=== PATIENT | female | born 1980 | race Caucasian/White ===

== ENCOUNTER 2016-08-09 21:38 | Emergency (ER) | payer OTHER | END 2016-08-10 00:20 | disposition home or self-care (01) | DX: R07.89 Other chest pain (principal); Z87.11 Personal history of peptic ulcer disease; F32.9 Major depressive disorder, single episode, unspecified ==

== ENCOUNTER 2017-02-25 19:16 | Emergency (ER) | payer OTHER ==
[2017-02-25 19:48] LABS: BILIRUBIN,URINE NEGATIVE (NEGATIVE); PH,URINE 6.5 PH (5.0-7.5)
[2017-02-25 19:51] LABS: HCG UR QUAL NEGATIVE; UA CHARGE (STRIP ONLY) YES; UR CULTURE IF IND NOT INDICATED
[2017-02-25 20:58] LABS: BASOPHILS # (AUTO) 0.1 10^3/uL (0.0-0.1); BASOPHILS % (AUTO) 0.5 %; EOSINOPHILS # (AUTO) 0.1 10^3/uL (0.0-0.7); EOSINOPHILS % (AUTO) 1.4 %; HCT - HEMATOCRIT 37.9 % (37.0-47.0); HGB - HEMOGLOBIN 12.8 g/dL (12.0-16.0); LYMPHOCYTES # (AUTO) 2.4 10^3/uL (1.5-3.5); LYMPHOCYTES % (AUTO) 23.2 %; MEAN CORPUSCULAR HEMOGLOBIN 29.5 pg (27.0-31.0); MEAN CORPUSCULAR HGB CONC 33.7 g/dL (32.0-36.0); MEAN CORPUSCULAR VOLUME 87.7 fL (81.0-99.0); MEAN PLATELET VOLUME 8.6 fL (7.9-10.8); MONOCYTES # (AUTO) 0.7 10^3/uL (0.0-1.0); NEUTROPHILS % (AUTO) 67.9 %; RED BLOOD COUNT 4.32 10^6/uL (4.20-5.40); RED CELL DISTRIBUTION WIDTH 14.2 % (12.0-15.0); UNCORRECTED WHITE BLOOD COUNT 10.4 x10^3/uL; WHITE BLOOD COUNT 10.4 x10^3/uL (4.8-10.8)
[2017-02-25 21:10] LABS: ALBUMIN/GLOBULIN RATIO 1.3 (1.0-2.2); BILIRUBIN,TOTAL 0.2 mg/dL (0.2-1.0); CALCIUM 9.7 mg/dL (8.5-10.3); CREATININE 0.8 mg/dL (0.4-1.0); POTASSIUM 4.3 mmol/L (3.5-5.0); TOTAL PROTEIN 8.1 g/dL (6.7-8.2)
[2017-02-25] MEDS ORDERED: NITROFURANTOIN MACRO 100 MG CAPSULE PO STA (21:28)
--- NOTE | 2017-02-25 21:29 | ED Physician Documentation ---
PD HPI BACK PAIN - Stated complaint Stated Complaint: BACK PX - Chief complaint Chief Complaint: Back Pain - History obtained from History obtained from: Patient - History of Present Illness Timing - duration: Weeks (1) Location: Lower Associated symptoms: Fever Similar symptoms before: Diagnosis (Urinary tract infection) - Additional information Additional information: The patient is a 37-year-old female who presents with lower abdominal discomfort radiating to her lower back. Her pain started about one week ago and became worse today. She reports foul-smelling urine, positive urinary frequency, and mild dysuria. She has noted a low-grade fever to 100. She reports nausea, without vomiting. Her last menstrual period was 1 1/2 weeks ago. She reports history of similar symptoms in the past. Review of her medical records reveals a similar presentation in June 2015, and she presented with very similar symptoms, had a negative urinalysis, and was treated for presumed UTI based on her characteristic symptoms. Review of Systems Constitutional: reports: Fever (low-grade) Nose: denies: Congestion Throat: denies: Sore throat Cardiac: denies: Chest pain / pressure Respiratory: denies: Dyspnea, Cough GI: reports: Abdominal Pain, Nausea. denies: Vomiting, Diarrhea : reports: Dysuria, Frequency, LMP (1.5 weeks ago) Skin: denies: Rash Musculoskeletal: reports: Back pain (lower back). 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 - Present Medications Home Medications: Ambulatory Orders Medication Instructions Recorded Confirmed Sertraline HCl [Zoloft] 100 mg PO DAILY 06/19/15 02/25/17 Nitrofurantoin [Macrobid] 100 mg PO BID #10 capsule 02/25/17 Phenazopyridine HCl [Pyridium] 200 mg PO TID PRN #10 tablet 02/25/17 - Allergies Allergies/Adverse Reactions: Allergies Allergy/AdvReac Type Severity Reaction Status Date / Time azithromycin [From Zithromax] Allergy Nausea Verified 02/25/17 19:21 - Social History Does the pt smoke?: No Smoking Status: Never smoker Does the pt drink ETOH?: No Does the pt have substance abuse?: No - Immunizations Immunizations are current?: Yes - POLST Patient has POLST: No PD ED PE NORMAL - Vitals Vital signs reviewed: Yes (normal) - General General: Alert and oriented X 3, Well developed/nourished - HEENT HEENT: Atraumatic, Moist mucous membranes, Pharynx benign - Neck Neck: No adenopathy, No JVD - Cardiac Cardiac: RRR, No murmur - Respiratory Respiratory: No respiratory distress, Clear bilaterally - Abdomen Abdomen: Normal bowel sounds, Soft, No organomegaly, Other (Mild suprapubic tenderness to palpation, without rebound tenderness or guarding.) - Back Back: No CVA TTP, No spinal TTP - Derm Derm: No rash - Neuro Neuro: Alert and oriented X 3, No motor deficit, Normal speech Results - Vitals Vitals: Oxygen O2 Source Room air - Labs Labs: Laboratory Tests 02/25/17 02/25/17 02/25/17 19:42 20:55 20:55 WBC 10.4 RBC 4.32 Hgb 12.8 Hct 37.9 MCV 87.7 MCH 29.5 MCHC 33.7 RDW 14.2 Plt Count 228 MPV 8.6 Neut # 7.0 H Lymph # 2.4 [place] # 0.7 Eos # 0.1 Baso # 0.1 Absolute Nucleated RBC 0.00 Nucleated RBC % 0.0 Sodium 138 Potassium 4.3 Chloride 104 Carbon Dioxide 22 Anion Gap 12.0 BUN 17 Creatinine 0.8 Estimated GFR (MDRD) 81 L Glucose 89 Calcium 9.7 Total Bilirubin 0.2 AST 21 ALT 20 Alkaline Phosphatase 61 Total Protein 8.1 Albumin 4.6 Globulin 3.5 Albumin/Globulin Ratio 1.3 Lipase 35 Urine Color YELLOW Urine Clarity CLEAR Urine pH 6.5 Ur Specific [place] 1.015 Urine Protein NEGATIVE Urine Glucose (UA) NEGATIVE Urine Ketones TRACE Urine Occult Blood NEGATIVE Urine Nitrite NEGATIVE Urine Bilirubin NEGATIVE Urine Urobilinogen 0.2 (NORMAL) Ur Leukocyte Esterase NEGATIVE Ur Microscopic Review NOT INDICATED Urine Culture Comments NOT INDICATED Urine HCG, Qual NEGATIVE PD MEDICAL DECISION MAKING - ED course Complexity details: reviewed old records, reviewed results, re-evaluated patient , considered differential, d/w patient ED course: The underlying cause of the patient's symptoms is a bit puzzling at this time. Her presentation is very characteristic of bladder infection. However her urinalysis is negative. Subsequently a CBC and chemistry panel were performed, and they are normal. Her test is negative. Because her symptoms are so typical of a UTI, I will treat her as such, with antibiotic therapy. However since this is the second time in the past year and a half the patient has presented in similar fashion, further workup may be indicated as an outpatient. This may include gynecologic workup, urologic workup, or less likely a GI workup. Treatment in the emergency department included administration of Macrobid 100 mg orally. She is being discharged with prescription for Macrobid. I discussed with her the results of her workup, antibiotic treatment and outpatient follow-up, as well as potentially worrisome signs or symptoms that should prompt reevaluation in the emergency department. Departure - Departure Disposition: 01 Home, Self Care Clinical Impression: Dysuria Condition: Stable Instructions: ED Dysuria Uncertain Cause Follow-Up: Lul Velasco ARNP [Primary Care Provider] - Prescriptions: Nitrofurantoin [Macrobid] 100 mg PO BID #10 capsule Phenazopyridine HCl [Pyridium] 200 mg PO TID PRN #10 tablet PRN Reason: pain with urination Comments: Drink plenty of fluids, including cranberry juice. Take Macrobid 2 times daily as prescribed. Follow up with your primary physician within 1-2 weeks. Call to schedule appointment. Return to the emergency department if you develop increasing pain, fever with shaking chills, persistent vomiting, or otherwise worsening symptoms. Discharge Date/Time: 02/25/17 21:40
[2017-02-25] MEDS ORDERED: NITROFURANTOIN MACRO 100 MG CAPSULE PO ONE (21:36)
[2017-02-25 21:39] VITALS: BP 120/80
== END 2017-02-25 21:40 | disposition home or self-care (01) ==
LOC: ED 19:16
DX: R30.0 Dysuria (principal)
CPT/HCPCS: 36415; 80053; 81003; 81025; 83690; 85025; 99283; A9270; 81001; 87086

== ENCOUNTER 2017-04-20 11:08 | Emergency (ER) | payer OTHER ==
[2017-04-20 11:51] VITALS: BP 125/90
--- NOTE | 2017-04-20 12:41 | XRAY Preliminary Report ---
Exam: XR CHEST 2 VIEW X-RAY IMPRESSION: 1. Left upper lobe and lingular pneumonia. [facility] SITE ID: [id number]
--- NOTE | 2017-04-20 12:41 | XRAY Report ---
EXAM: CHEST RADIOGRAPHY EXAM DATE: 04/20/2017 12:12 PM. CLINICAL HISTORY: Cough, congestion shortness of air. COMPARISON: 08/04/2014. TECHNIQUE: 2 views. FINDINGS: Lungs/Pleura: Dense airspace consolidation is present in the left upper lobe and lingula. Mediastinum: Heart and mediastinal contours are unremarkable. Other: Mild degenerative changes of the thoracic spine. IMPRESSION: 1. Left upper lobe and lingular pneumonia. [facility] Referring Provider Line: [phone] SITE ID: [id number]
[2017-04-20] MEDS ORDERED: cefTRIAXone 1 GM VIAL IM STA (12:55)
[2017-04-20] MEDS ORDERED: LIDOCAINE 1% 2 ML VIAL SUBQ ONE (12:55)
--- NOTE | 2017-04-20 12:56 | ED Physician Documentation ---
PD HPI DYSPNEA - Stated complaint Stated Complaint: FEVER/COUGH/BODYACHES - Chief complaint Chief Complaint: Resp - History obtained from History obtained from: Patient - History of Present Illness Timing - onset: How many days ago (4) Timing - duration: Days (4) Timing - details: Still present Associated symptoms: Fever, Cough Similar symptoms before: Has not had sx before - Treatment prior to arrival Treatment prior to arrival: Tylenol. - Additional information Additional information: The patient is a 37-year-old female who presents with productive cough of 4 days duration. She reports fatigue, myalgias, headache, fever and chills. She denies sore throat, nausea, vomiting, or diarrhea. She does not smoke cigarettes. She has no history of similar symptoms in the past. 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 - Present Medications Home Medications: Ambulatory Orders Medication Instructions Recorded Confirmed Sertraline HCl [Zoloft] 100 mg PO DAILY 06/19/15 02/25/17 Nitrofurantoin [Macrobid] 100 mg PO BID #10 capsule 02/25/17 Phenazopyridine HCl [Pyridium] 200 mg PO TID PRN #10 tablet 02/25/17 Doxycycline Monohydrate 100 mg PO BID #20 tablet 04/20/17 - Allergies Allergies/Adverse Reactions: Allergies Allergy/AdvReac Type Severity Reaction Status Date / Time azithromycin [From Zithromax] Allergy Nausea Verified 04/20/17 11:51 - Social History Does the pt smoke?: No Smoking Status: Never smoker Does the pt drink ETOH?: No Does the pt have substance abuse?: No - Immunizations Immunizations are current?: Yes - POLST Patient has POLST: No PD ED PE NORMAL - Vitals Vital signs reviewed: Yes (febrile) - General General: Alert and oriented X 3, Well developed/nourished, Other (Appears miserable.) - HEENT HEENT: Atraumatic, EOMI, Ears normal, Pharynx benign - Neck Neck: Supple, no meningeal sign, No adenopathy, No JVD - Cardiac Cardiac: RRR, No murmur - Respiratory Respiratory: Clear bilaterally - Abdomen Abdomen: Soft, Non tender - Back Back: No CVA TTP - Derm Derm: No rash - Extremities Extremities: No edema, No calf tenderness / cord - Neuro Neuro: Alert and oriented X 3, No motor deficit, No sensory deficit Results - Vitals Vitals: Oxygen O2 Source Room air - Labs Labs: Laboratory Tests 04/20/17 11:50 Influenza A (Rapid) Negative Influenza B (Rapid) Negative Influenza Types A,B Ag - - Rads (name of study) CXR Radiology: Prelim report reviewed, EMP read contemporaneously, See rad report ( Left upper lobe and lingular pneumonia.) PD MEDICAL DECISION MAKING - ED course Complexity details: reviewed results, re-evaluated patient, considered differential, d/w patient ED course: The patient's presentation is most consistent with pneumonia, with chest x-ray revealing left upper and lingular lobe infiltrate. She is maintaining adequate oxygenation for outpatient therapy. Treatment in the emergency department included administration of ceftriaxone 1 g IM, and ibuprofen 800 mg orally. She is being discharged with prescription for doxycycline, since she reports allergy to azithromycin. I discussed with her the diagnosis, antibiotic treatment and outpatient follow-up, as well as potentially worrisome signs or symptoms that should prompt reevaluation in the emergency department. Departure - Departure Disposition: 01 Home, Self Care Clinical Impression: Pneumonia Qualifiers: Pneumonia type: due to unspecified organism Laterality: left Lung location: upper lobe of lung Qualified Code(s): J18.1 - Lobar pneumonia, unspecified organism Condition: Stable Instructions: ED Pneumonia Adult Follow-Up: Lul Velasco ARNP [Primary Care Provider] - Prescriptions: Doxycycline Monohydrate 100 mg PO BID #20 tablet Comments: Take doxycycline twice daily as prescribed. You can use Tylenol or ibuprofen as needed for fever or discomfort. Follow up with your primary physician within 1-2 weeks. Call to schedule appointment. Return to the emergency department if you develop increasing difficulty breathing, or otherwise worsening symptoms. Forms: Activity restrictions Discharge Date/Time: 04/20/17 13:46
[2017-04-20] MEDS ORDERED: IBUPROFEN 800 MG TABLET PO STA (13:04)
== END 2017-04-20 13:46 | disposition home or self-care (01) ==
LOC: ED 11:08
DX: J18.9 Pneumonia, unspecified organism (principal); Z87.11 Personal history of peptic ulcer disease
CPT/HCPCS: 71046; 87275; 87276; 96372; 99283; 99284; A9270